=== PATIENT | female | born 1945 | race Caucasian/White ===

== ENCOUNTER 2023-05-10 14:02 | Inpatient (IN) | payer OTHER, MEDICARE ==
[2023-05-10] MEDS ORDERED: ACETAMINOPHEN 1000 MG/100 ML BAG IVPB ONE (14:54)
[2023-05-10] MEDS ORDERED: SODIUM CHLORIDE 0.9% 500 ML INFUS.BAG IV ONE ×2 (14:54→18:31)
[2023-05-10] MEDS ORDERED: ACETAMINOPHEN INJECTION 100 ML IVPB ONE (16:05)
[2023-05-10 16:38] LABS: BASO % 0.3 % (0-2.0); EOS % 0.1 % (0-4.5); HEMATOCRIT 29.3 % (32.4-45.2); HEMOGLOBIN 9.7 GM/dL (10.7-15.3); LYMPH % 9.5 % (8-40); MCH 26.4 pg (25.7-33.7); MCHC 32.9 g/dl (32.0-36.0); MONO % 11.7 % (3.8-10.2); NEUT % 78.4 % (42.8-82.8); PLATELET COUNT 682 10^3/uL (134-434); RBC 3.67 M/mm3 (3.60-5.2); RDW 15.2 % (11.6-15.6); WHITE BLOOD COUNT 17.2 K/mm3 (4.0-10.0)
[2023-05-10 16:43] LABS: INR 1.46 (0.83-1.09); PROTHROMBIN TIME (PATIENT) 16.9 SEC (9.7-13.0)
[2023-05-10 16:46] LABS: ACTIVATED PTT 26.9 SECONDS (25.2-36.5)
[2023-05-10 16:47] LABS: POTASSIUM 3.7 mmol/L (3.5-5.1)
[2023-05-10 16:50] LABS: ALBUMIN 2.2 g/dl (3.4-5.0); CALCIUM 9.4 mg/dL (8.5-10.1); MAGNESIUM 1.8 mg/dL (1.8-2.4)
[2023-05-10 16:54] LABS: BILIRUBIN,TOTAL 0.5 mg/dL (0.2-1); CREATININE 1.3 mg/dL (0.55-1.3); TOT PROT 7.6 g/dl (6.4-8.2)
[2023-05-10 18:18] LABS: EPI CELLS 3 /uL (0-25.1); HYALINE CASTS 0 /uL (0-3.1); URINE APPEARANCE CLOUDY; URINE BACTERIA 314 /uL (0-1359); URINE BILIRUBIN NEGATIVE (NEGATIVE); URINE COLOR DK YELLOW; URINE GLUCOSE (UA) NEGATIVE (NEGATIVE); URINE KETONE NEGATIVE (NEGATIVE); URINE LEUK ESTERASE 3+ (NEGATIVE); URINE NITRITE NEGATIVE (NEGATIVE); URINE PROTEIN TRACE (NEGATIVE); URINE RBC 21 /uL (0-23.9); URINE UROBILINOGEN 0.2 mg/dL (0.2-1.0); URINE WBC 1760 /uL (0-25.8)
[2023-05-10] MEDS ORDERED: CEFTRIAXONE 1 GM/50 ML BAG ONE (19:16)
[2023-05-10] MEDS ORDERED: TAMSULOSIN HCL 0.4 MG CAP PO ONE (19:25)
[2023-05-10] MEDS ORDERED: TAMSULOSIN HCL 0.4 MG CAP ONE (19:47)
[2023-05-10] MEDS ORDERED: morphine CARPU-JECT 2 MG/1 ML DISP.SYRIN IM ONE (20:22)
[2023-05-10] MEDS ORDERED: ONDANSETRON 4 MG/2 ML VIAL IVPUSH ONE (20:22)
[2023-05-10] MEDS ORDERED: ACETAMINOPHEN 325 MG TABLET (FP) PO PRN (20:25)
[2023-05-10] MEDS ORDERED: SODIUM CHLORIDE 1,000 ML IV SCH (20:30)
[2023-05-10 21:32] LABS: YEAST NONE SEEN (NEGATIVE)
[2023-05-11] MEDS ORDERED: ACETAMINOPHEN 1000 MG/100 ML BAG IVPB PRN ×3 (02:00→17:28)
[2023-05-11] MEDS ORDERED: ONDANSETRON 4 MG/2 ML VIAL IVPUSH PRN ×2 (02:30→16:28)
[2023-05-11 10:24] LABS: INR 1.49 (0.83-1.09); PROTHROMBIN TIME (PATIENT) 17.2 SEC (9.7-13.0)
[2023-05-11 10:27] LABS: ACTIVATED PTT 26.5 SECONDS (25.2-36.5)
[2023-05-11 10:35] LABS: BASO % 0.2 % (0-2.0); EOS % 0.1 % (0-4.5); HEMATOCRIT 27.4 % (32.4-45.2); HEMOGLOBIN 9.3 GM/dL (10.7-15.3); MCHC 34.1 g/dl (32.0-36.0); MEAN CELL VOLUME 79.2 fl (80-96); MONO % 8.8 % (3.8-10.2); NEUT % 82.9 % (42.8-82.8); PLATELET COUNT 629 10^3/uL (134-434); RBC 3.46 M/mm3 (3.60-5.2); RDW 15.2 % (11.6-15.6); WHITE BLOOD COUNT 16.3 K/mm3 (4.0-10.0)
[2023-05-11 11:15] LABS: POTASSIUM 3.3 mmol/L (3.5-5.1)
[2023-05-11 11:19] LABS: BLOOD UREA NITROGEN 16.5 mg/dL (7-18); CALCIUM 8.6 mg/dL (8.5-10.1)
[2023-05-11] MEDS ORDERED: POTASSIUM CHLORIDE ORAL LIQUID 20 MEQ/15 ML PO ONE (13:54)
[2023-05-11] MEDS ORDERED: CEFTRIAXONE 1 GM in DEXTROSE 5%-WATER - 50 ML IVPB SCH (14:00)
[2023-05-11] MEDS ORDERED: MIDAZOLAM HCL 2 MG/2 ML SINGLE DOSE VIAL ONE ×2 (15:19→15:24)
[2023-05-11] MEDS ORDERED: KETAMINE HCL 200 MG/20 ML VIAL ONE (15:19)
[2023-05-11] MEDS ORDERED: ceFAZolin SODIUM 1 GM VIAL IVPB ONE (15:30)
[2023-05-11] MEDS ORDERED: IOHEXOL 300 MG/ML INFUS..BTL IV ONE (15:36)
[2023-05-11] MEDS ORDERED: LACTATED RINGERS SOLUTION 1,000 ML IV SCH (16:15)
[2023-05-11] MEDS ORDERED: ACETAMINOPHEN INJECTION 100 ML IVPB ONE (16:20)
[2023-05-11] MEDS ORDERED: SODIUM CHLORIDE 1,000 ML IV SCH (16:28)
[2023-05-11] MEDS ORDERED: ACETAMINOPHEN 1000 MG/100 ML BAG IVPB ONE (17:28)
[2023-05-12] MEDS: CEFTRIAXONE 1 GM in DEXTROSE 5%-WATER - 50 ML IVPB SCH (09:55)
[2023-05-12 11:12] LABS: BASO % 0.2 % (0-2.0); EOS % 0.3 % (0-4.5); HEMATOCRIT 27.4 % (32.4-45.2); HEMOGLOBIN 9.5 GM/dL (10.7-15.3); LYMPH % 6.5 % (8-40); MCH 26.9 pg (25.7-33.7); MCHC 34.7 g/dl (32.0-36.0); MEAN CELL VOLUME 77.7 fl (80-96); MEAN PLT VOLUME 5.9 fl (7.5-11.1); PLATELET COUNT 686 10^3/uL (134-434); RBC 3.52 M/mm3 (3.60-5.2); RDW 15.7 % (11.6-15.6); WHITE BLOOD COUNT 18.7 K/mm3 (4.0-10.0)
[2023-05-12 11:37] LABS: POTASSIUM 3.4 mmol/L (3.5-5.1)
[2023-05-12 11:46] LABS: CALCIUM 8.3 mg/dL (8.5-10.1); CREATININE 1.2 mg/dL (0.55-1.3)
[2023-05-12 11:47] LABS: BLOOD UREA NITROGEN 14.3 mg/dL (7-18)
[2023-05-12 11:49] LABS: BILIRUBIN,TOTAL 0.3 mg/dL (0.2-1); TOT PROT 6.6 g/dl (6.4-8.2)
[2023-05-12 11:56] LABS: ALBUMIN 1.7 g/dl (3.4-5.0)
[2023-05-12 13:48] VITALS: BMI 24.6
[2023-05-12] MEDS: ACETAMINOPHEN 325 MG TABLET (FP) PO PRN (14:33)
[2023-05-12] MEDS: HEPARIN NA (PORCINE) 5,000 UNITS/ML 1ML VIAL SQ SCH ×2 (21:23→21:24)
[2023-05-13] MEDS: CEFTRIAXONE 1 GM in DEXTROSE 5%-WATER - 50 ML IVPB SCH (10:32)
[2023-05-13] MEDS: HEPARIN NA (PORCINE) 5,000 UNITS/ML 1ML VIAL SQ SCH ×2 (10:32→22:15)
[2023-05-14] MEDS: CEFTRIAXONE 1 GM in DEXTROSE 5%-WATER - 50 ML IVPB SCH (09:36)
[2023-05-14] MEDS: HEPARIN NA (PORCINE) 5,000 UNITS/ML 1ML VIAL SQ SCH ×2 (09:37→21:16)
[2023-05-14 09:43] LABS: HEMATOCRIT 28.9 % (32.4-45.2); HEMOGLOBIN 9.7 GM/dL (10.7-15.3); MCH 26.7 pg (25.7-33.7); MCHC 33.5 g/dl (32.0-36.0); MEAN CELL VOLUME 79.6 fl (80-96); MEAN PLT VOLUME 5.9 fl (7.5-11.1); PLATELET COUNT 776 10^3/uL (134-434); RBC 3.63 M/mm3 (3.60-5.2); RDW 15.5 % (11.6-15.6)
[2023-05-14 09:52] LABS: POTASSIUM 3.3 mmol/L (3.5-5.1)
[2023-05-14 10:10] LABS: CALCIUM 8.3 mg/dL (8.5-10.1)
[2023-05-14 10:11] LABS: ALBUMIN 1.8 g/dl (3.4-5.0); BLOOD UREA NITROGEN 11.6 mg/dL (7-18)
[2023-05-14 10:14] LABS: CREATININE 0.9 mg/dL (0.55-1.3)
[2023-05-14 10:16] LABS: TOT PROT 7.1 g/dl (6.4-8.2)
[2023-05-14 10:18] LABS: BILIRUBIN,TOTAL 0.3 mg/dL (0.2-1)
[2023-05-14 10:21] LABS: ANISOCYTOSIS 2+; MACROCYTOSIS 0
[2023-05-14] MEDS ORDERED: POTASSIUM CHLORIDE ORAL LIQUID 20 MEQ/15 ML PO ONE (11:30)
[2023-05-14] MEDS: ACETAMINOPHEN 325 MG TABLET (FP) PO PRN (13:23)
[2023-05-15 08:37] LABS: HEMATOCRIT 25.5 % (32.4-45.2); HEMOGLOBIN 8.4 GM/dL (10.7-15.3); MCH 26.3 pg (25.7-33.7); MCHC 33.1 g/dl (32.0-36.0); MEAN CELL VOLUME 79.5 fl (80-96); PLATELET COUNT 687 10^3/uL (134-434); RBC 3.21 M/mm3 (3.60-5.2); RDW 15.7 % (11.6-15.6); WHITE BLOOD COUNT 17.5 K/mm3 (4.0-10.0)
[2023-05-15 08:47] LABS: MEAN PLT VOLUME 5.7 fl (7.5-11.1)
[2023-05-15 08:56] LABS: POTASSIUM 3.9 mmol/L (3.5-5.1)
[2023-05-15 08:58] LABS: CALCIUM 7.9 mg/dL (8.5-10.1)
[2023-05-15 08:59] LABS: ALBUMIN 1.6 g/dl (3.4-5.0); BLOOD UREA NITROGEN 12.1 mg/dL (7-18)
[2023-05-15 09:03] LABS: BILIRUBIN,TOTAL 0.4 mg/dL (0.2-1); TOT PROT 6.6 g/dl (6.4-8.2)
[2023-05-15 09:33] LABS: ANISOCYTOSIS 0; HELMET CELLS 0; HOWELL-JOLLY BODIES 0; MACROCYTOSIS 0; OVALOCYTE 0; ROULEAU 0; SICKELED CELLS 0; TARGET CELLS 0; TEAR DROP CELLS 0; TOXIC GRANULATION 0
[2023-05-15] MEDS: CEFTRIAXONE 1 GM in DEXTROSE 5%-WATER - 50 ML IVPB SCH (09:35)
[2023-05-15] MEDS: HEPARIN NA (PORCINE) 5,000 UNITS/ML 1ML VIAL SQ SCH ×2 (09:36→21:04)
[2023-05-15] MEDS: ACETAMINOPHEN 325 MG TABLET (FP) PO PRN (09:36)
[2023-05-16] MEDS: HEPARIN NA (PORCINE) 5,000 UNITS/ML 1ML VIAL SQ SCH ×2 (09:14→21:00)
[2023-05-16] MEDS: CEFTRIAXONE 1 GM in DEXTROSE 5%-WATER - 50 ML IVPB SCH (09:15)
[2023-05-16 10:34] LABS: HEMATOCRIT 25.8 % (32.4-45.2); HEMOGLOBIN 8.9 GM/dL (10.7-15.3); MCH 27.3 pg (25.7-33.7); MCHC 34.5 g/dl (32.0-36.0); PLATELET COUNT 636 10^3/uL (134-434); RBC 3.26 M/mm3 (3.60-5.2); RDW 15.8 % (11.6-15.6); WHITE BLOOD COUNT 15.1 K/mm3 (4.0-10.0)
[2023-05-16 10:36] LABS: MEAN PLT VOLUME 5.7 fl (7.5-11.1)
[2023-05-16 11:12] LABS: ANISOCYTOSIS 0; MACROCYTOSIS 0
[2023-05-17] MEDS: HEPARIN NA (PORCINE) 5,000 UNITS/ML 1ML VIAL SQ SCH ×2 (09:36→21:32)
[2023-05-17] MEDS: CEFTRIAXONE 1 GM in DEXTROSE 5%-WATER - 50 ML IVPB SCH (09:37)
[2023-05-17 10:29] LABS: HEMATOCRIT 27.1 % (32.4-45.2); HEMOGLOBIN 8.9 GM/dL (10.7-15.3); MCH 26.3 pg (25.7-33.7); MCHC 32.7 g/dl (32.0-36.0); MEAN CELL VOLUME 80.5 fl (80-96); PLATELET COUNT 764 10^3/uL (134-434); RBC 3.37 M/mm3 (3.60-5.2); RDW 15.9 % (11.6-15.6); WHITE BLOOD COUNT 17.7 K/mm3 (4.0-10.0)
[2023-05-17 10:31] LABS: MEAN PLT VOLUME 5.8 fl (7.5-11.1)
[2023-05-17 10:50] LABS: POTASSIUM 4.1 mmol/L (3.5-5.1)
[2023-05-17 10:53] LABS: CALCIUM 8.6 mg/dL (8.5-10.1)
[2023-05-17 10:54] LABS: ALBUMIN 1.8 g/dl (3.4-5.0); BLOOD UREA NITROGEN 12.2 mg/dL (7-18)
[2023-05-17 10:57] LABS: CREATININE 1.1 mg/dL (0.55-1.3)
[2023-05-17 10:59] LABS: BILIRUBIN,TOTAL 0.5 mg/dL (0.2-1); TOT PROT 7.5 g/dl (6.4-8.2)
[2023-05-17 11:15] LABS: ANISOCYTOSIS 2+; MACROCYTOSIS 0
[2023-05-18] MEDS: CEFTRIAXONE 1 GM in DEXTROSE 5%-WATER - 50 ML IVPB SCH (09:53)
[2023-05-18] MEDS: HEPARIN NA (PORCINE) 5,000 UNITS/ML 1ML VIAL SQ SCH ×2 (09:53→21:42)
[2023-05-18 13:44] LABS: HEMATOCRIT 27.6 % (32.4-45.2); HEMOGLOBIN 9.1 GM/dL (10.7-15.3); MCH 26.5 pg (25.7-33.7); MCHC 32.9 g/dl (32.0-36.0); MEAN CELL VOLUME 80.6 fl (80-96); PLATELET COUNT 766 10^3/uL (134-434); RBC 3.42 M/mm3 (3.60-5.2); RDW 15.6 % (11.6-15.6); WHITE BLOOD COUNT 17.4 K/mm3 (4.0-10.0)
[2023-05-18 13:45] LABS: MEAN PLT VOLUME 5.8 fl (7.5-11.1)
[2023-05-18 14:29] LABS: ANISOCYTOSIS 0; HELMET CELLS 0; HOWELL-JOLLY BODIES 0; MACROCYTOSIS 0; OVALOCYTE 0; ROULEAU 0; SICKELED CELLS 0; TARGET CELLS 0; TEAR DROP CELLS 0; TOXIC GRANULATION 0
[2023-05-18] MEDS: MIRTAZAPINE 15 MG TABLET (FP) PO SCH (21:42)
[2023-05-19] MEDS: PANTOPRAZOLE 40 MG TABLET PO SCH (10:23)
[2023-05-19] MEDS: FOLIC ACID 1 MG TABLET (FP) PO SCH (10:23)
[2023-05-19] MEDS: VITAMIN B COMP W-C 1 EA TABLET (NEPHRO-VITE) PO SCH (10:23)
[2023-05-19] MEDS: HEPARIN NA (PORCINE) 5,000 UNITS/ML 1ML VIAL SQ SCH (10:24)
[2023-05-19 11:19] LABS: HEMATOCRIT 24.8 % (32.4-45.2); HEMOGLOBIN 8.6 GM/dL (10.7-15.3); MCH 27.5 pg (25.7-33.7); MCHC 34.9 g/dl (32.0-36.0); MEAN CELL VOLUME 78.9 fl (80-96); MEAN PLT VOLUME 5.9 fl (7.5-11.1); PLATELET COUNT 630 10^3/uL (134-434); RBC 3.14 M/mm3 (3.60-5.2); RDW 15.7 % (11.6-15.6)
[2023-05-19 11:59] LABS: POTASSIUM 4.3 mmol/L (3.5-5.1)
[2023-05-19 12:28] LABS: CALCIUM 8.5 mg/dL (8.5-10.1)
[2023-05-19 12:30] LABS: ALBUMIN 1.6 g/dl (3.4-5.0); BLOOD UREA NITROGEN 13.6 mg/dL (7-18)
[2023-05-19 12:34] LABS: CREATININE 1.1 mg/dL (0.55-1.3)
[2023-05-19 12:35] LABS: ANISOCYTOSIS 0; HELMET CELLS 0; HOWELL-JOLLY BODIES 0; MACROCYTOSIS 0; OVALOCYTE 0; ROULEAU 0; SICKELED CELLS 0; TARGET CELLS 0; TEAR DROP CELLS 0; TOXIC GRANULATION 0
[2023-05-19 12:36] LABS: BILIRUBIN,TOTAL 0.4 mg/dL (0.2-1)
[2023-05-19] MEDS ORDERED: CEFTRIAXONE 1 GM in DEXTROSE 5%-WATER - 50 ML IVPB SCH (14:15)
[2023-05-19] MEDS: CEFTRIAXONE 2 GM in DEXTROSE 5%-WATER 100 ML IVPB SCH (14:52)
[2023-05-19] MEDS: MIRTAZAPINE 15 MG TABLET (FP) PO SCH (21:53)
[2023-05-20] MEDS: FOLIC ACID 1 MG TABLET (FP) PO SCH (10:01)
[2023-05-20] MEDS: PANTOPRAZOLE 40 MG TABLET PO SCH (10:01)
[2023-05-20] MEDS: CEFTRIAXONE 2 GM in DEXTROSE 5%-WATER 100 ML IVPB SCH (10:02)
[2023-05-20] MEDS: VITAMIN B COMP W-C 1 EA TABLET (NEPHRO-VITE) PO SCH (10:02)
[2023-05-20 10:19] LABS: HEMATOCRIT 25.9 % (32.4-45.2); HEMOGLOBIN 8.4 GM/dL (10.7-15.3); MCH 26.3 pg (25.7-33.7); MCHC 32.4 g/dl (32.0-36.0); MEAN CELL VOLUME 80.9 fl (80-96); MEAN PLT VOLUME 5.9 fl (7.5-11.1); PLATELET COUNT 702 10^3/uL (134-434); RBC 3.19 M/mm3 (3.60-5.2); RDW 15.9 % (11.6-15.6); WHITE BLOOD COUNT 15.7 K/mm3 (4.0-10.0)
[2023-05-20 10:38] LABS: POTASSIUM 4.3 mmol/L (3.5-5.1)
[2023-05-20 10:45] LABS: BLOOD UREA NITROGEN 15.8 mg/dL (7-18)
[2023-05-20 10:46] LABS: ALBUMIN 1.7 g/dl (3.4-5.0); CALCIUM 8.8 mg/dL (8.5-10.1)
[2023-05-20 10:49] LABS: CREATININE 1.1 mg/dL (0.55-1.3)
[2023-05-20 10:51] LABS: BILIRUBIN,TOTAL 0.4 mg/dL (0.2-1); TOT PROT 7.5 g/dl (6.4-8.2)
[2023-05-20] MEDS: MIRTAZAPINE 15 MG TABLET (FP) PO SCH (22:33)
[2023-05-20] MEDS: ACETAMINOPHEN 325 MG TABLET (FP) PO PRN (22:34)
[2023-05-21] MEDS: PANTOPRAZOLE 40 MG TABLET PO SCH (10:22)
[2023-05-21] MEDS: CEFTRIAXONE 2 GM in DEXTROSE 5%-WATER 100 ML IVPB SCH (10:22)
[2023-05-21] MEDS: VITAMIN B COMP W-C 1 EA TABLET (NEPHRO-VITE) PO SCH (10:22)
[2023-05-21] MEDS: FOLIC ACID 1 MG TABLET (FP) PO SCH (10:22)
[2023-05-21] MEDS: MIRTAZAPINE 15 MG TABLET (FP) PO SCH (22:57)
[2023-05-22] MEDS: CEFTRIAXONE 2 GM in DEXTROSE 5%-WATER 100 ML IVPB SCH (09:38)
[2023-05-22] MEDS: VITAMIN B COMP W-C 1 EA TABLET (NEPHRO-VITE) PO SCH (09:39)
[2023-05-22] MEDS: PANTOPRAZOLE 40 MG TABLET PO SCH (09:39)
[2023-05-22] MEDS: FOLIC ACID 1 MG TABLET (FP) PO SCH (09:39)
[2023-05-22 10:34] LABS: HEMATOCRIT 25.7 % (32.4-45.2); HEMOGLOBIN 8.5 GM/dL (10.7-15.3); MCH 26.6 pg (25.7-33.7); MCHC 33.1 g/dl (32.0-36.0); MEAN CELL VOLUME 80.3 fl (80-96); PLATELET COUNT 752 10^3/uL (134-434); RDW 15.5 % (11.6-15.6)
[2023-05-22 10:50] LABS: POTASSIUM 3.9 mmol/L (3.5-5.1)
[2023-05-22 10:57] LABS: ALBUMIN 1.7 g/dl (3.4-5.0); CALCIUM 8.7 mg/dL (8.5-10.1)
[2023-05-22 10:58] LABS: BLOOD UREA NITROGEN 14.4 mg/dL (7-18)
[2023-05-22 11:00] LABS: BILIRUBIN,TOTAL 0.4 mg/dL (0.2-1); TOT PROT 7.6 g/dl (6.4-8.2)
[2023-05-22 11:01] LABS: CREATININE 1.2 mg/dL (0.55-1.3)
[2023-05-22] MEDS: MIRTAZAPINE 15 MG TABLET (FP) PO SCH (21:33)
[2023-05-23] MEDS: CEFTRIAXONE 2 GM in DEXTROSE 5%-WATER 100 ML IVPB SCH (09:44)
[2023-05-23] MEDS: VITAMIN B COMP W-C 1 EA TABLET (NEPHRO-VITE) PO SCH (09:45)
[2023-05-23] MEDS: PANTOPRAZOLE 40 MG TABLET PO SCH (09:45)
[2023-05-23] MEDS: FOLIC ACID 1 MG TABLET (FP) PO SCH (09:45)
[2023-05-23] MEDS: MIRTAZAPINE 15 MG TABLET (FP) PO SCH (22:01)
[2023-05-24] MEDS: CEFTRIAXONE 2 GM in DEXTROSE 5%-WATER 100 ML IVPB SCH (09:16)
[2023-05-24] MEDS: PANTOPRAZOLE 40 MG TABLET PO SCH (09:16)
[2023-05-24] MEDS: VITAMIN B COMP W-C 1 EA TABLET (NEPHRO-VITE) PO SCH (09:16)
[2023-05-24] MEDS: FOLIC ACID 1 MG TABLET (FP) PO SCH (09:16)
[2023-05-24 10:19] LABS: HEMATOCRIT 26.3 % (32.4-45.2); HEMOGLOBIN 8.5 GM/dL (10.7-15.3); MCHC 32.1 g/dl (32.0-36.0); MEAN CELL VOLUME 81.1 fl (80-96); MEAN PLT VOLUME 5.9 fl (7.5-11.1); PLATELET COUNT 783 10^3/uL (134-434); RBC 3.25 M/mm3 (3.60-5.2); RDW 15.8 % (11.6-15.6); WHITE BLOOD COUNT 13.4 K/mm3 (4.0-10.0)
[2023-05-24 10:36] LABS: POTASSIUM 4.1 mmol/L (3.5-5.1)
[2023-05-24 10:38] LABS: ALBUMIN 1.8 g/dl (3.4-5.0); CALCIUM 8.8 mg/dL (8.5-10.1)
[2023-05-24 10:39] LABS: BLOOD UREA NITROGEN 14.6 mg/dL (7-18)
[2023-05-24 10:43] LABS: BILIRUBIN,TOTAL 0.3 mg/dL (0.2-1); TOT PROT 7.6 g/dl (6.4-8.2)
[2023-05-24] MEDS ORDERED: NYSTATIN 100,000 UNIT/GM TOPICAL CREAM 15 GM TUBE TP SCH (11:15)
[2023-05-24 12:58] LABS: ANISOCYTOSIS 0; MACROCYTOSIS 0
[2023-05-24] MEDS ORDERED: LIDOCAINE HCL/PF 2% SDV 5ML VIAL ONE (14:52)
[2023-05-24] MEDS ORDERED: PROPOFOL 20 ML ONE (14:53)
[2023-05-24] MEDS ORDERED: FENTANYL CITRATE/PF 50 MCG/ML VIAL ONE (14:53)
[2023-05-24] MEDS ORDERED: DEXAMETHASONE SOD PHOSPHATE 4 MG/1 ML VIAL ONE (15:20)
[2023-05-24] MEDS ORDERED: ONDANSETRON 4 MG/2 ML VIAL ONE (15:20)
[2023-05-24] MEDS ORDERED: IOHEXOL 300 MG/ML INFUS..BTL IJ ONE (15:40)
[2023-05-24] MEDS ORDERED: ACETAMINOPHEN 1000 MG/100 ML BAG IVPB PRN (16:10)
[2023-05-24] MEDS ORDERED: ONDANSETRON 4 MG/2 ML VIAL IVPUSH PRN (16:10)
[2023-05-24] MEDS ORDERED: ACETAMINOPHEN INJECTION 100 ML IVPB ONE (16:22)
[2023-05-24] MEDS: LACTATED RINGERS SOLUTION 1,000 ML IV SCH ×2 (17:28→18:06)
[2023-05-24] MEDS: MIRTAZAPINE 15 MG TABLET (FP) PO SCH (21:58)
[2023-05-24] MEDS: NYSTATIN 100,000 UNIT/GM TOPICAL CREAM 15 GM TUBE TP SCH (21:58)
[2023-05-25 08:46] LABS: HEMATOCRIT 25.8 % (32.4-45.2); HEMOGLOBIN 8.6 GM/dL (10.7-15.3); MCH 26.6 pg (25.7-33.7); MCHC 33.2 g/dl (32.0-36.0); MEAN CELL VOLUME 80.1 fl (80-96); MEAN PLT VOLUME 5.9 fl (7.5-11.1); PLATELET COUNT 839 10^3/uL (134-434); RBC 3.22 M/mm3 (3.60-5.2); RDW 15.6 % (11.6-15.6); WHITE BLOOD COUNT 13.4 K/mm3 (4.0-10.0)
[2023-05-25] MEDS: PANTOPRAZOLE 40 MG TABLET PO SCH (10:11)
[2023-05-25] MEDS: VITAMIN B COMP W-C 1 EA TABLET (NEPHRO-VITE) PO SCH (10:11)
[2023-05-25] MEDS: CEFTRIAXONE 2 GM in DEXTROSE 5%-WATER 100 ML IVPB SCH (10:11)
[2023-05-25] MEDS: NYSTATIN 100,000 UNIT/GM TOPICAL CREAM 15 GM TUBE TP SCH ×2 (10:12→22:55)
[2023-05-25] MEDS: FOLIC ACID 1 MG TABLET (FP) PO SCH (10:12)
[2023-05-25] MEDS: LACTATED RINGERS SOLUTION 1,000 ML IV SCH (16:30)
[2023-05-25] MEDS: MIRTAZAPINE 15 MG TABLET (FP) PO SCH (22:54)
[2023-05-26] MEDS: PANTOPRAZOLE 40 MG TABLET PO SCH (09:55)
[2023-05-26] MEDS: FOLIC ACID 1 MG TABLET (FP) PO SCH (09:55)
[2023-05-26] MEDS: VITAMIN B COMP W-C 1 EA TABLET (NEPHRO-VITE) PO SCH (09:55)
[2023-05-26] MEDS: CEFTRIAXONE 2 GM in DEXTROSE 5%-WATER 100 ML IVPB SCH (09:56)
[2023-05-26] MEDS: NYSTATIN 100,000 UNIT/GM TOPICAL CREAM 15 GM TUBE TP SCH ×2 (10:02→22:20)
[2023-05-26 11:33] LABS: BASO % 0.8 % (0-2.0); EOS % 1.1 % (0-4.5); HEMATOCRIT 25.8 % (32.4-45.2); HEMOGLOBIN 8.8 GM/dL (10.7-15.3); LYMPH % 12.6 % (8-40); MCH 27.2 pg (25.7-33.7); MCHC 34.3 g/dl (32.0-36.0); MEAN CELL VOLUME 79.2 fl (80-96); MONO % 9.8 % (3.8-10.2); NEUT % 75.7 % (42.8-82.8); PLATELET COUNT 739 10^3/uL (134-434); RBC 3.25 M/mm3 (3.60-5.2); RDW 15.8 % (11.6-15.6)
[2023-05-26] MEDS: LACTATED RINGERS SOLUTION 1,000 ML IV SCH (18:07)
[2023-05-26] MEDS: AMINO ACIDS/PROTEIN HYDROLYS 30 ML LIQUID.PKT PO SCH (18:07)
[2023-05-26] MEDS ORDERED: VANCOMYCIN/WATER FOR INJ (PEG) 1,000 MG/200 ML BAG IVPB ONE (21:30)
[2023-05-26] MEDS: MIRTAZAPINE 15 MG TABLET (FP) PO SCH (22:12)
[2023-05-27 01:03] LABS: BASO % 0.7 % (0-2.0); EOS % 0.9 % (0-4.5); HEMATOCRIT 22.9 % (32.4-45.2); HEMOGLOBIN 7.5 GM/dL (10.7-15.3); LYMPH % 11.9 % (8-40); MCH 26.3 pg (25.7-33.7); MCHC 32.8 g/dl (32.0-36.0); MEAN CELL VOLUME 80.2 fl (80-96); MEAN PLT VOLUME 6.1 fl (7.5-11.1); MONO % 10.7 % (3.8-10.2); NEUT % 75.8 % (42.8-82.8); PLATELET COUNT 606 10^3/uL (134-434); RBC 2.85 M/mm3 (3.60-5.2); RDW 15.7 % (11.6-15.6); WHITE BLOOD COUNT 14.3 K/mm3 (4.0-10.0)
[2023-05-27 01:04] LABS: EPI CELLS 18 /uL (0-25.1); HYALINE CASTS 11 /uL (0-3.1); PH,URINE 6.5 (5.0-8.0); URINE APPEARANCE TURBID; URINE BACTERIA 1094 /uL (0-1359); URINE BILIRUBIN NEGATIVE (NEGATIVE); URINE COLOR YELLOW; URINE GLUCOSE (UA) NEGATIVE (NEGATIVE); URINE KETONE NEGATIVE (NEGATIVE); URINE LEUK ESTERASE 3+ (NEGATIVE); URINE NITRITE NEGATIVE (NEGATIVE); URINE PROTEIN 3+ (NEGATIVE); URINE UROBILINOGEN 0.2 mg/dL (0.2-1.0); URINE WBC 12169 /uL (0-25.8)
[2023-05-27 01:33] LABS: POTASSIUM 3.9 mmol/L (3.5-5.1)
[2023-05-27 01:35] LABS: CALCIUM 7.5 mg/dL (8.5-10.1)
[2023-05-27 01:36] LABS: ALBUMIN 1.6 g/dl (3.4-5.0); BLOOD UREA NITROGEN 16.6 mg/dL (7-18); MAGNESIUM 1.6 mg/dL (1.8-2.4)
[2023-05-27 01:39] LABS: CREATININE 1.1 mg/dL (0.55-1.3); PHOSPHOROUS 2.5 mg/dL (2.5-4.9)
[2023-05-27 01:40] LABS: BILIRUBIN,TOTAL 0.2 mg/dL (0.2-1); TOT PROT 6.5 g/dl (6.4-8.2)
[2023-05-27] MEDS: ACETAMINOPHEN 325 MG TABLET (FP) PO PRN ×3 (03:01→20:25)
[2023-05-27 07:23] LABS: URINE RBC 200.6 /uL (0-23.9)
[2023-05-27 07:24] LABS: URINE CRYSTALS NONE SEEN /hpf
[2023-05-27] MEDS: AMINO ACIDS/PROTEIN HYDROLYS 30 ML LIQUID.PKT PO SCH ×2 (10:54→17:13)
[2023-05-27] MEDS: VITAMIN B COMP W-C 1 EA TABLET (NEPHRO-VITE) PO SCH (10:55)
[2023-05-27] MEDS: FOLIC ACID 1 MG TABLET (FP) PO SCH (10:55)
[2023-05-27] MEDS: PANTOPRAZOLE 40 MG TABLET PO SCH (10:55)
[2023-05-27] MEDS: NYSTATIN 100,000 UNIT/GM TOPICAL CREAM 15 GM TUBE TP SCH ×2 (10:56→21:49)
[2023-05-27] MEDS: CEFTRIAXONE 2 GM in DEXTROSE 5%-WATER 100 ML IVPB SCH (11:40)
[2023-05-27] MEDS ORDERED: FENTANYL CITRATE/PF 50 MCG/ML VIAL ONE (12:46)
[2023-05-27] MEDS ORDERED: FENTANYL CITRATE/PF 50 MCG/ML VIAL IVPUSH ONE (12:48)
[2023-05-27] MEDS ORDERED: PIPERACILLIN/TAZOB 4.5 GM 4.5 GM in DEXTROSE 5%-WATER 100 ML IVPB SCH (15:22)
[2023-05-27] MEDS: LACTATED RINGERS SOLUTION 1,000 ML IV SCH (16:16)
[2023-05-27] MEDS: PIPERACILLIN/TAZOB 3.375 GM 3.375 GM in DEXTROSE 5%-WATER - 50 ML IVPB SCH ×2 (16:16→21:50)
[2023-05-27] MEDS: MIRTAZAPINE 15 MG TABLET (FP) PO SCH (21:49)
[2023-05-28] MEDS: ACETAMINOPHEN 325 MG TABLET (FP) PO PRN (05:24)
[2023-05-28] MEDS: PIPERACILLIN/TAZOB 3.375 GM 3.375 GM in DEXTROSE 5%-WATER - 50 ML IVPB SCH ×3 (06:26→22:17)
[2023-05-28 09:14] LABS: BASO % 0.7 % (0-2.0); EOS % 1.7 % (0-4.5); HEMOGLOBIN 8.1 GM/dL (10.7-15.3); LYMPH % 6.6 % (8-40); MCH 26.1 pg (25.7-33.7); MCHC 32.6 g/dl (32.0-36.0); MONO % 7.1 % (3.8-10.2); NEUT % 83.9 % (42.8-82.8); PLATELET COUNT 607 10^3/uL (134-434); RBC 3.13 M/mm3 (3.60-5.2); RDW 15.9 % (11.6-15.6); WHITE BLOOD COUNT 12.7 K/mm3 (4.0-10.0)
[2023-05-28 09:29] LABS: POTASSIUM 3.7 mmol/L (3.5-5.1)
[2023-05-28 09:36] LABS: CALCIUM 8.1 mg/dL (8.5-10.1)
[2023-05-28 09:37] LABS: ALBUMIN 1.7 g/dl (3.4-5.0); BLOOD UREA NITROGEN 14.7 mg/dL (7-18)
[2023-05-28 09:40] LABS: CREATININE 1.2 mg/dL (0.55-1.3)
[2023-05-28 09:41] LABS: BILIRUBIN,TOTAL 0.3 mg/dL (0.2-1)
[2023-05-28 09:43] LABS: IRON SERUM 8 ug/dL (50-175); TOTAL IRON BINDING CAPACITY 132 ug/dL (250-450)
[2023-05-28] MEDS: AMINO ACIDS/PROTEIN HYDROLYS 30 ML LIQUID.PKT PO SCH ×2 (09:50→17:28)
[2023-05-28] MEDS: VITAMIN B COMP W-C 1 EA TABLET (NEPHRO-VITE) PO SCH (09:50)
[2023-05-28] MEDS: FOLIC ACID 1 MG TABLET (FP) PO SCH (09:50)
[2023-05-28] MEDS: PANTOPRAZOLE 40 MG TABLET PO SCH (09:50)
[2023-05-28] MEDS: NYSTATIN 100,000 UNIT/GM TOPICAL CREAM 15 GM TUBE TP SCH ×2 (09:51→22:19)
[2023-05-28] MEDS ORDERED: IRON SUCROSE INJECTION 200 MG in SODIUM CHLORIDE 90 ML IVPB ONE (13:30)
[2023-05-28] MEDS: LACTATED RINGERS SOLUTION 1,000 ML IV SCH (17:31)
[2023-05-28] MEDS: MIRTAZAPINE 15 MG TABLET (FP) PO SCH (22:16)
[2023-05-29] MEDS: PIPERACILLIN/TAZOB 3.375 GM 3.375 GM in DEXTROSE 5%-WATER - 50 ML IVPB SCH ×4 (00:33→22:18)
[2023-05-29] MEDS: ACETAMINOPHEN 325 MG TABLET (FP) PO PRN (01:27)
[2023-05-29] MEDS: PANTOPRAZOLE 40 MG TABLET PO SCH (09:19)
[2023-05-29] MEDS: AMINO ACIDS/PROTEIN HYDROLYS 30 ML LIQUID.PKT PO SCH ×2 (09:19→17:50)
[2023-05-29] MEDS: VITAMIN B COMP W-C 1 EA TABLET (NEPHRO-VITE) PO SCH (09:19)
[2023-05-29] MEDS: NYSTATIN 100,000 UNIT/GM TOPICAL CREAM 15 GM TUBE TP SCH ×2 (09:19→22:20)
[2023-05-29] MEDS: ENOXAPARIN NA (PORCINE) 40 MG/0.4 ML DISP.SYRIN SQ SCH (09:19)
[2023-05-29] MEDS: FOLIC ACID 1 MG TABLET (FP) PO SCH (09:19)
[2023-05-29] MEDS ORDERED: BENZOCAINE/MENTHOL 1 EACH LOZENGE MM PRN (09:45)
[2023-05-29] MEDS: LACTOBACILLUS ACIDOPHILUS 1 TABLET PO SCH (13:41)
[2023-05-29] MEDS: LACTATED RINGERS SOLUTION 1,000 ML IV SCH (17:50)
[2023-05-29] MEDS: MIRTAZAPINE 15 MG TABLET (FP) PO SCH (22:18)
[2023-05-29] MEDS: SODIUM CHLORIDE 1,000 ML IV SCH (22:18)
[2023-05-30] MEDS: PIPERACILLIN/TAZOB 3.375 GM 3.375 GM in DEXTROSE 5%-WATER - 50 ML IVPB SCH ×2 (05:40→13:41)
[2023-05-30] MEDS: AMINO ACIDS/PROTEIN HYDROLYS 30 ML LIQUID.PKT PO SCH ×2 (08:42→17:42)
[2023-05-30] MEDS: NYSTATIN 100,000 UNIT/GM TOPICAL CREAM 15 GM TUBE TP SCH ×2 (10:13→22:46)
[2023-05-30] MEDS: VITAMIN B COMP W-C 1 EA TABLET (NEPHRO-VITE) PO SCH (10:54)
[2023-05-30] MEDS: ENOXAPARIN NA (PORCINE) 40 MG/0.4 ML DISP.SYRIN SQ SCH (10:54)
[2023-05-30] MEDS: FOLIC ACID 1 MG TABLET (FP) PO SCH (10:54)
[2023-05-30] MEDS: PANTOPRAZOLE 40 MG TABLET PO SCH (10:54)
[2023-05-30] MEDS: LACTOBACILLUS ACIDOPHILUS 1 TABLET PO SCH (10:55)
[2023-05-30 12:21] LABS: HEMOGLOBIN 8.1 GM/dL (10.7-15.3); MCH 26.1 pg (25.7-33.7); MCHC 32.5 g/dl (32.0-36.0); MEAN CELL VOLUME 80.5 fl (80-96); PLATELET COUNT 687 10^3/uL (134-434); RDW 15.8 % (11.6-15.6); WHITE BLOOD COUNT 11.2 K/mm3 (4.0-10.0)
[2023-05-30 12:44] LABS: POTASSIUM 3.8 mmol/L (3.5-5.1)
[2023-05-30 12:48] LABS: BLOOD UREA NITROGEN 15.3 mg/dL (7-18); CALCIUM 8.2 mg/dL (8.5-10.1)
[2023-05-30 12:49] LABS: ALBUMIN 1.7 g/dl (3.4-5.0)
[2023-05-30 12:52] LABS: CREATININE 1.1 mg/dL (0.55-1.3)
[2023-05-30 12:53] LABS: BILIRUBIN,TOTAL 0.3 mg/dL (0.2-1); TOT PROT 6.8 g/dl (6.4-8.2)
[2023-05-30 13:01] LABS: ANISOCYTOSIS 2+; MACROCYTOSIS 0; TARGET CELLS 1+
[2023-05-30] MEDS: CEFTRIAXONE 2 GM in DEXTROSE 5%-WATER 100 ML IVPB SCH (17:42)
[2023-05-30] MEDS ORDERED: PIPERACILLIN/TAZOB 3.375 GM 3.375 GM in DEXTROSE 5%-WATER - 50 ML IVPB SCH (22:00)
[2023-05-30] MEDS: MIRTAZAPINE 15 MG TABLET (FP) PO SCH (22:44)
[2023-05-30] MEDS: ACETAMINOPHEN 325 MG TABLET (FP) PO PRN (23:58)
[2023-05-31] MEDS: SODIUM CHLORIDE 1,000 ML IV SCH ×2 (01:45→21:35)
[2023-05-31] MEDS ORDERED: ACETAMINOPHEN 325 MG SUPP.RECT RC ONE (02:00)
[2023-05-31] MEDS ORDERED: ACETAMINOPHEN 1000 MG/100 ML BAG IVPB ONE (04:57)
[2023-05-31] MEDS: LACTATED RINGERS SOLUTION 1,000 ML IV SCH ×2 (06:05→19:26)
[2023-05-31] MEDS: AMINO ACIDS/PROTEIN HYDROLYS 30 ML LIQUID.PKT PO SCH ×2 (09:14→19:24)
[2023-05-31 09:38] LABS: HEMATOCRIT 25.6 % (32.4-45.2); HEMOGLOBIN 8.5 GM/dL (10.7-15.3); MCH 26.2 pg (25.7-33.7); MCHC 33.4 g/dl (32.0-36.0); MEAN CELL VOLUME 78.5 fl (80-96); MEAN PLT VOLUME 5.9 fl (7.5-11.1); PLATELET COUNT 622 10^3/uL (134-434); RBC 3.26 M/mm3 (3.60-5.2); WHITE BLOOD COUNT 22.6 K/mm3 (4.0-10.0)
[2023-05-31 09:48] LABS: POTASSIUM 3.6 mmol/L (3.5-5.1)
[2023-05-31 09:54] LABS: CALCIUM 8.2 mg/dL (8.5-10.1)
[2023-05-31 09:55] LABS: ALBUMIN 1.7 g/dl (3.4-5.0)
[2023-05-31 09:57] LABS: CREATININE 1.2 mg/dL (0.55-1.3)
[2023-05-31 09:59] LABS: BILIRUBIN,TOTAL 0.2 mg/dL (0.2-1); TOT PROT 6.8 g/dl (6.4-8.2)
[2023-05-31] MEDS: CEFTRIAXONE 2 GM in DEXTROSE 5%-WATER 100 ML IVPB SCH (10:14)
[2023-05-31 10:15] LABS: EPI CELLS 8 /uL (0-25.1); HYALINE CASTS 0 /uL (0-3.1); URINE APPEARANCE TURBID; URINE BACTERIA 276 /uL (0-1359); URINE BILIRUBIN NEGATIVE (NEGATIVE); URINE COLOR YELLOW; URINE GLUCOSE (UA) NEGATIVE (NEGATIVE); URINE KETONE NEGATIVE (NEGATIVE); URINE LEUK ESTERASE 3+ (NEGATIVE); URINE NITRITE NEGATIVE (NEGATIVE); URINE PROTEIN 2+ (NEGATIVE); URINE UROBILINOGEN 0.2 mg/dL (0.2-1.0); URINE WBC 5819 /uL (0-25.8)
[2023-05-31] MEDS: FOLIC ACID 1 MG TABLET (FP) PO SCH (10:15)
[2023-05-31] MEDS: LACTOBACILLUS ACIDOPHILUS 1 TABLET PO SCH (10:15)
[2023-05-31] MEDS: VITAMIN B COMP W-C 1 EA TABLET (NEPHRO-VITE) PO SCH (10:15)
[2023-05-31] MEDS: PANTOPRAZOLE 40 MG TABLET PO SCH ×2 (10:15→21:32)
[2023-05-31] MEDS: ENOXAPARIN NA (PORCINE) 40 MG/0.4 ML DISP.SYRIN SQ SCH (10:15)
[2023-05-31] MEDS: NYSTATIN 100,000 UNIT/GM TOPICAL CREAM 15 GM TUBE TP SCH ×2 (10:24→21:32)
[2023-05-31 10:43] LABS: ANISOCYTOSIS 3+; MACROCYTOSIS 0
[2023-05-31 10:50] LABS: URINE CRYSTALS NONE SEEN /hpf; URINE RBC 753.1 /uL (0-23.9)
[2023-05-31 10:51] LABS: YEAST NONE SEEN (NEGATIVE)
[2023-05-31] MEDS: ACETAMINOPHEN 325 MG TABLET (FP) PO PRN ×2 (13:15→21:31)
[2023-05-31] MEDS ORDERED: guaiFENesin 200 MG/10 ML 10 ML UNIT-DOSE CUPS PO PRN (14:43)
[2023-05-31] MEDS: MEROPENEM 1 GM in DEXTROSE 5%-WATER 100 ML IVPB SCH (15:40)
[2023-05-31] MEDS: VANCOMYCIN/WATER FOR INJ (PEG) 1,000 MG/200 ML BAG IVPB SCH (20:01)
[2023-05-31] MEDS: MIRTAZAPINE 15 MG TABLET (FP) PO SCH (21:31)
[2023-06-01] MEDS: MEROPENEM 1 GM in DEXTROSE 5%-WATER 100 ML IVPB SCH ×2 (03:55→15:29)
[2023-06-01] MEDS ORDERED: CASPOFUNGIN ACETATE 70 MG in SODIUM CHLORIDE 250 ML IVPB ONE (08:56)
[2023-06-01 09:19] LABS: BASO % 0.5 % (0-2.0); EOS % 1.8 % (0-4.5); HEMATOCRIT 27.3 % (32.4-45.2); HEMOGLOBIN 8.6 GM/dL (10.7-15.3); LYMPH % 6.8 % (8-40); MCH 25.3 pg (25.7-33.7); MCHC 31.5 g/dl (32.0-36.0); MEAN CELL VOLUME 80.5 fl (80-96); MEAN PLT VOLUME 6.1 fl (7.5-11.1); MONO % 5.8 % (3.8-10.2); NEUT % 85.1 % (42.8-82.8); PLATELET COUNT 708 10^3/uL (134-434); RBC 3.39 M/mm3 (3.60-5.2); RDW 16.3 % (11.6-15.6); WHITE BLOOD COUNT 19.7 K/mm3 (4.0-10.0)
[2023-06-01 09:37] LABS: POTASSIUM 3.5 mmol/L (3.5-5.1)
[2023-06-01 09:39] LABS: CALCIUM 8.7 mg/dL (8.5-10.1)
[2023-06-01 09:40] LABS: ALBUMIN 1.8 g/dl (3.4-5.0); BLOOD UREA NITROGEN 15.6 mg/dL (7-18)
[2023-06-01 09:43] LABS: CREATININE 1.1 mg/dL (0.55-1.3)
[2023-06-01 09:44] LABS: BILIRUBIN,TOTAL 0.2 mg/dL (0.2-1); TOT PROT 7.1 g/dl (6.4-8.2)
[2023-06-01] MEDS ORDERED: ACETAMINOPHEN 1000 MG/100 ML BAG IVPB PRN ×2 (10:23→18:48)
[2023-06-01] MEDS: LACTOBACILLUS ACIDOPHILUS 1 TABLET PO SCH (10:46)
[2023-06-01] MEDS: AMINO ACIDS/PROTEIN HYDROLYS 30 ML LIQUID.PKT PO SCH ×2 (10:46→17:35)
[2023-06-01] MEDS: VITAMIN B COMP W-C 1 EA TABLET (NEPHRO-VITE) PO SCH (10:47)
[2023-06-01] MEDS: FOLIC ACID 1 MG TABLET (FP) PO SCH (10:47)
[2023-06-01] MEDS: PANTOPRAZOLE 40 MG TABLET PO SCH ×2 (10:47→21:09)
[2023-06-01] MEDS: NYSTATIN 100,000 UNIT/GM TOPICAL CREAM 15 GM TUBE TP SCH ×2 (10:49→21:10)
[2023-06-01] MEDS: ENOXAPARIN NA (PORCINE) 40 MG/0.4 ML DISP.SYRIN SQ SCH (10:50)
[2023-06-01 12:07] LABS: URINE APPEARANCE TURBID; URINE BILIRUBIN NEGATIVE (NEGATIVE); URINE COLOR YELLOW; URINE GLUCOSE (UA) NEGATIVE (NEGATIVE); URINE KETONE NEGATIVE (NEGATIVE)
[2023-06-01 12:08] LABS: URINE LEUK ESTERASE 4+ (NEGATIVE); URINE NITRITE NEGATIVE (NEGATIVE); URINE PROTEIN 2+ (NEGATIVE); URINE UROBILINOGEN 0.2 mg/dL (0.2-1.0)
[2023-06-01 12:10] LABS: EPI CELLS 88.6 /uL (0-25.1); HYALINE CASTS 340.32 /uL (0-3.1); URINE BACTERIA 1299.4 /uL (0-1359); URINE RBC 700.7 /uL (0-23.9); YEAST NEGATIVE (NEGATIVE)
[2023-06-01] MEDS: VANCOMYCIN/WATER FOR INJ (PEG) 1,000 MG/200 ML BAG IVPB SCH (16:03)
[2023-06-01] MEDS: LACTATED RINGERS SOLUTION 1,000 ML IV SCH (17:35)
[2023-06-01] MEDS ORDERED: PROMETHAZINE HCL 25 MG/1 ML VIAL IVPB PRN ×2 (17:54→18:48)
[2023-06-01] MEDS ORDERED: oxyCODONE HCL 5 MG TABLET PO PRN ×2 (17:54→18:48)
[2023-06-01] MEDS ORDERED: FENTANYL CITRATE/PF 50 MCG/ML VIAL ONE (18:07)
[2023-06-01] MEDS ORDERED: PROPOFOL 20 ML ONE (18:07)
[2023-06-01] MEDS ORDERED: MIDAZOLAM HCL 2 MG/2 ML SINGLE DOSE VIAL ONE (18:07)
[2023-06-01] MEDS ORDERED: LIDOCAINE HCL/PF 2% SDV 5ML VIAL ONE (18:09)
[2023-06-01] MEDS: SODIUM CHLORIDE 1,000 ML IV SCH (18:45)
[2023-06-01] MEDS ORDERED: BENZOCAINE/MENTHOL 1 EACH LOZENGE MM PRN (18:48)
[2023-06-01] MEDS ORDERED: LACTATED RINGERS SOLUTION 1,000 ML IV SCH (18:48)
[2023-06-01] MEDS ORDERED: ONDANSETRON 4 MG/2 ML VIAL IVPUSH PRN (18:48)
[2023-06-01] MEDS ORDERED: guaiFENesin 200 MG/10 ML 10 ML UNIT-DOSE CUPS PO PRN (18:48)
[2023-06-01] MEDS ORDERED: ACETAMINOPHEN 325 MG TABLET (FP) PO PRN (18:48)
[2023-06-01] MEDS: MIRTAZAPINE 15 MG TABLET (FP) PO SCH (21:08)
[2023-06-02 01:55] VITALS: RESP 18
[2023-06-02] MEDS: MEROPENEM 1 GM in DEXTROSE 5%-WATER 100 ML IVPB SCH ×2 (02:18→14:35)
[2023-06-02] MEDS: SODIUM CHLORIDE 1,000 ML IV SCH (07:46)
[2023-06-02 08:39] LABS: BASO % 0.4 % (0-2.0); EOS % 4.4 % (0-4.5); HEMATOCRIT 23.2 % (32.4-45.2); HEMOGLOBIN 7.5 GM/dL (10.7-15.3); LYMPH % 13.8 % (8-40); MCH 25.3 pg (25.7-33.7); MCHC 32.3 g/dl (32.0-36.0); MEAN CELL VOLUME 78.2 fl (80-96); MONO % 8.1 % (3.8-10.2); NEUT % 73.3 % (42.8-82.8); PLATELET COUNT 557 10^3/uL (134-434); RBC 2.97 M/mm3 (3.60-5.2); RDW 16.6 % (11.6-15.6); WHITE BLOOD COUNT 13.3 K/mm3 (4.0-10.0)
[2023-06-02] MEDS ORDERED: CASPOFUNGIN ACETATE 50 MG in SODIUM CHLORIDE 250 ML IVPB SCH (09:00)
[2023-06-02 09:10] LABS: POTASSIUM 3.2 mmol/L (3.5-5.1)
[2023-06-02 09:16] LABS: ALBUMIN 1.6 g/dl (3.4-5.0); BLOOD UREA NITROGEN 14.8 mg/dL (7-18)
[2023-06-02 09:19] LABS: CREATININE 0.9 mg/dL (0.55-1.3)
[2023-06-02 09:20] LABS: BILIRUBIN,TOTAL 0.4 mg/dL (0.2-1); TOT PROT 6.1 g/dl (6.4-8.2)
[2023-06-02] MEDS: AMINO ACIDS/PROTEIN HYDROLYS 30 ML LIQUID.PKT PO SCH ×2 (10:03→17:40)
[2023-06-02] MEDS: FOLIC ACID 1 MG TABLET (FP) PO SCH (10:03)
[2023-06-02] MEDS: VITAMIN B COMP W-C 1 EA TABLET (NEPHRO-VITE) PO SCH (10:04)
[2023-06-02] MEDS: ENOXAPARIN NA (PORCINE) 40 MG/0.4 ML DISP.SYRIN SQ SCH (10:04)
[2023-06-02] MEDS: LACTOBACILLUS ACIDOPHILUS 1 TABLET PO SCH (10:04)
[2023-06-02] MEDS: PANTOPRAZOLE 40 MG TABLET PO SCH ×2 (10:04→21:06)
[2023-06-02] MEDS: NYSTATIN 100,000 UNIT/GM TOPICAL CREAM 15 GM TUBE TP SCH ×2 (10:05→21:07)
[2023-06-02] MEDS: CASPOFUNGIN ACETATE 50 MG in SODIUM CHLORIDE 250 ML IVPB SCH (10:37)
[2023-06-02] MEDS ORDERED: IRON SUCROSE INJECTION 200 MG in SODIUM CHLORIDE 90 ML IVPB ONE (11:20)
[2023-06-02] MEDS ORDERED: VANCOMYCIN/WATER FOR INJ (PEG) 1,000 MG/200 ML BAG IVPB SCH (16:00)
[2023-06-02] MEDS: MIRTAZAPINE 15 MG TABLET (FP) PO SCH (21:06)
[2023-06-03] MEDS: MEROPENEM 1 GM in DEXTROSE 5%-WATER 100 ML IVPB SCH (02:23)
[2023-06-03] MEDS: LACTOBACILLUS ACIDOPHILUS 1 TABLET PO SCH (10:33)
[2023-06-03] MEDS: AMINO ACIDS/PROTEIN HYDROLYS 30 ML LIQUID.PKT PO SCH ×2 (10:33→18:12)
[2023-06-03] MEDS: CASPOFUNGIN ACETATE 50 MG in SODIUM CHLORIDE 250 ML IVPB SCH (10:33)
[2023-06-03] MEDS: FOLIC ACID 1 MG TABLET (FP) PO SCH (10:33)
[2023-06-03] MEDS: VITAMIN B COMP W-C 1 EA TABLET (NEPHRO-VITE) PO SCH (10:34)
[2023-06-03] MEDS: ENOXAPARIN NA (PORCINE) 40 MG/0.4 ML DISP.SYRIN SQ SCH (10:34)
[2023-06-03] MEDS: PANTOPRAZOLE 40 MG TABLET PO SCH ×2 (10:34→21:28)
[2023-06-03] MEDS: NYSTATIN 100,000 UNIT/GM TOPICAL CREAM 15 GM TUBE TP SCH ×2 (10:35→21:30)
[2023-06-03 13:07] LABS: HEMATOCRIT 24.6 % (32.4-45.2); MCH 25.8 pg (25.7-33.7); MCHC 32.5 g/dl (32.0-36.0); MEAN CELL VOLUME 79.4 fl (80-96); MEAN PLT VOLUME 6.3 fl (7.5-11.1); PLATELET COUNT 586 10^3/uL (134-434); RDW 16.4 % (11.6-15.6); WHITE BLOOD COUNT 12.1 K/mm3 (4.0-10.0)
[2023-06-03 13:31] LABS: POTASSIUM 3.5 mmol/L (3.5-5.1)
[2023-06-03 13:32] LABS: BLOOD UREA NITROGEN 14.2 mg/dL (7-18); CALCIUM 8.5 mg/dL (8.5-10.1)
[2023-06-03 13:33] LABS: ALBUMIN 1.6 g/dl (3.4-5.0)
[2023-06-03 13:36] LABS: CREATININE 0.8 mg/dL (0.55-1.3)
[2023-06-03 13:37] LABS: BILIRUBIN,TOTAL 0.3 mg/dL (0.2-1); TOT PROT 6.3 g/dl (6.4-8.2)
[2023-06-03] MEDS ORDERED: CEFTRIAXONE 2 GM-D5W BAG 2 GM/50 ML BAG IVPB SCH (13:45)
[2023-06-03 15:05] LABS: ANISOCYTOSIS 3+; MACROCYTOSIS 0
[2023-06-03] MEDS: PIPERACILLIN/TAZOB 3.375 GM 3.375 GM in DEXTROSE 5%-WATER - 50 ML IVPB SCH (18:05)
[2023-06-03] MEDS: MIRTAZAPINE 15 MG TABLET (FP) PO SCH (21:27)
[2023-06-03] MEDS: SODIUM CHLORIDE 1,000 ML IV SCH (21:35)
[2023-06-04] MEDS: PIPERACILLIN/TAZOB 3.375 GM 3.375 GM in DEXTROSE 5%-WATER - 50 ML IVPB SCH ×3 (04:08→17:34)
[2023-06-04] MEDS: AMINO ACIDS/PROTEIN HYDROLYS 30 ML LIQUID.PKT PO SCH ×2 (08:26→17:34)
[2023-06-04] MEDS ORDERED: PIPERACILLIN/TAZOBACTAM 3.375 GM VIAL IVPB ONE (09:43)
[2023-06-04] MEDS: ENOXAPARIN NA (PORCINE) 40 MG/0.4 ML DISP.SYRIN SQ SCH (10:27)
[2023-06-04] MEDS: VITAMIN B COMP W-C 1 EA TABLET (NEPHRO-VITE) PO SCH (10:27)
[2023-06-04] MEDS: LACTOBACILLUS ACIDOPHILUS 1 TABLET PO SCH (10:27)
[2023-06-04] MEDS: PANTOPRAZOLE 40 MG TABLET PO SCH ×2 (10:27→22:27)
[2023-06-04] MEDS: FOLIC ACID 1 MG TABLET (FP) PO SCH (10:27)
[2023-06-04] MEDS: NYSTATIN 100,000 UNIT/GM TOPICAL CREAM 15 GM TUBE TP SCH ×2 (10:28→22:26)
[2023-06-04] MEDS: SODIUM CHLORIDE 1,000 ML IV SCH ×2 (17:09→22:25)
[2023-06-04] MEDS: MIRTAZAPINE 15 MG TABLET (FP) PO SCH (22:27)
[2023-06-05] MEDS: PIPERACILLIN/TAZOB 3.375 GM 3.375 GM in DEXTROSE 5%-WATER - 50 ML IVPB SCH ×3 (02:22→17:55)
[2023-06-05] MEDS: AMINO ACIDS/PROTEIN HYDROLYS 30 ML LIQUID.PKT PO SCH ×2 (08:30→17:55)
[2023-06-05] MEDS: PANTOPRAZOLE 40 MG TABLET PO SCH ×2 (10:06→21:57)
[2023-06-05] MEDS: LACTOBACILLUS ACIDOPHILUS 1 TABLET PO SCH (10:07)
[2023-06-05] MEDS: FOLIC ACID 1 MG TABLET (FP) PO SCH (10:07)
[2023-06-05] MEDS: ENOXAPARIN NA (PORCINE) 40 MG/0.4 ML DISP.SYRIN SQ SCH (10:07)
[2023-06-05] MEDS: VITAMIN B COMP W-C 1 EA TABLET (NEPHRO-VITE) PO SCH (10:07)
[2023-06-05] MEDS: NYSTATIN 100,000 UNIT/GM TOPICAL CREAM 15 GM TUBE TP SCH ×2 (10:08→21:58)
[2023-06-05] MEDS: SODIUM CHLORIDE 1,000 ML IV SCH ×2 (18:55→21:59)
[2023-06-05] MEDS: MIRTAZAPINE 15 MG TABLET (FP) PO SCH (21:57)
[2023-06-06] MEDS: PIPERACILLIN/TAZOB 3.375 GM 3.375 GM in DEXTROSE 5%-WATER - 50 ML IVPB SCH ×4 (02:20→19:01)
[2023-06-06] MEDS: AMINO ACIDS/PROTEIN HYDROLYS 30 ML LIQUID.PKT PO SCH ×2 (08:41→18:01)
[2023-06-06 10:02] LABS: BASO % 1.1 % (0-2.0); HEMATOCRIT 24.6 % (32.4-45.2); HEMOGLOBIN 7.9 GM/dL (10.7-15.3); LYMPH % 17.6 % (8-40); MCH 25.9 pg (25.7-33.7); MEAN CELL VOLUME 80.9 fl (80-96); MEAN PLT VOLUME 6.1 fl (7.5-11.1); MONO % 8.8 % (3.8-10.2); NEUT % 68.5 % (42.8-82.8); PLATELET COUNT 567 10^3/uL (134-434); RBC 3.04 M/mm3 (3.60-5.2); WHITE BLOOD COUNT 11.8 K/mm3 (4.0-10.0)
[2023-06-06] MEDS: LACTOBACILLUS ACIDOPHILUS 1 TABLET PO SCH (10:02)
[2023-06-06] MEDS: ENOXAPARIN NA (PORCINE) 40 MG/0.4 ML DISP.SYRIN SQ SCH (10:02)
[2023-06-06] MEDS: PANTOPRAZOLE 40 MG TABLET PO SCH ×2 (10:02→23:02)
[2023-06-06] MEDS: FOLIC ACID 1 MG TABLET (FP) PO SCH (10:02)
[2023-06-06] MEDS: VITAMIN B COMP W-C 1 EA TABLET (NEPHRO-VITE) PO SCH (10:02)
[2023-06-06] MEDS: NYSTATIN 100,000 UNIT/GM TOPICAL CREAM 15 GM TUBE TP SCH ×2 (10:25→23:04)
[2023-06-06 10:36] LABS: POTASSIUM 3.2 mmol/L (3.5-5.1)
[2023-06-06 10:45] LABS: ALBUMIN 1.7 g/dl (3.4-5.0); BILIRUBIN,TOTAL 0.3 mg/dL (0.2-1); BLOOD UREA NITROGEN 14.2 mg/dL (7-18); TOT PROT 6.4 g/dl (6.4-8.2)
[2023-06-06 10:46] LABS: CALCIUM 8.4 mg/dL (8.5-10.1)
[2023-06-06 10:51] LABS: ANISOCYTOSIS 3+; MACROCYTOSIS 0
[2023-06-06] MEDS ORDERED: POTASSIUM CHLORIDE ORAL LIQUID 20 MEQ/15 ML PO ONE (15:10)
[2023-06-06] MEDS: SODIUM CHLORIDE 1,000 ML IV SCH (17:55)
[2023-06-06] MEDS: MIRTAZAPINE 15 MG TABLET (FP) PO SCH (23:02)
[2023-06-07] MEDS: PIPERACILLIN/TAZOB 3.375 GM 3.375 GM in DEXTROSE 5%-WATER - 50 ML IVPB SCH ×3 (02:25→18:04)
[2023-06-07] MEDS: PANTOPRAZOLE 40 MG TABLET PO SCH ×2 (09:21→22:32)
[2023-06-07] MEDS: ENOXAPARIN NA (PORCINE) 40 MG/0.4 ML DISP.SYRIN SQ SCH (09:21)
[2023-06-07] MEDS: AMINO ACIDS/PROTEIN HYDROLYS 30 ML LIQUID.PKT PO SCH ×2 (09:21→16:46)
[2023-06-07] MEDS: VITAMIN B COMP W-C 1 EA TABLET (NEPHRO-VITE) PO SCH (09:22)
[2023-06-07] MEDS: LACTOBACILLUS ACIDOPHILUS 1 TABLET PO SCH (09:22)
[2023-06-07] MEDS: SODIUM CHLORIDE 1,000 ML IV SCH ×2 (09:22→22:32)
[2023-06-07] MEDS: FOLIC ACID 1 MG TABLET (FP) PO SCH (09:22)
[2023-06-07] MEDS: NYSTATIN 100,000 UNIT/GM TOPICAL CREAM 15 GM TUBE TP SCH ×2 (12:30→22:32)
[2023-06-07 12:34] LABS: HEMATOCRIT 26.6 % (32.4-45.2); HEMOGLOBIN 8.4 GM/dL (10.7-15.3); MCH 25.8 pg (25.7-33.7); MCHC 31.7 g/dl (32.0-36.0); MEAN CELL VOLUME 81.3 fl (80-96); MEAN PLT VOLUME 6.2 fl (7.5-11.1); PLATELET COUNT 627 10^3/uL (134-434); RBC 3.27 M/mm3 (3.60-5.2); RDW 17.5 % (11.6-15.6); WHITE BLOOD COUNT 13.4 K/mm3 (4.0-10.0)
[2023-06-07 12:52] LABS: ANISOCYTOSIS 1+; MACROCYTOSIS 0
[2023-06-07 12:58] LABS: POTASSIUM 3.4 mmol/L (3.5-5.1)
[2023-06-07 13:00] LABS: CALCIUM 8.5 mg/dL (8.5-10.1)
[2023-06-07 13:02] LABS: ALBUMIN 1.8 g/dl (3.4-5.0); BLOOD UREA NITROGEN 14.8 mg/dL (7-18)
[2023-06-07 13:05] LABS: CREATININE 0.8 mg/dL (0.55-1.3)
[2023-06-07 13:06] LABS: BILIRUBIN,TOTAL 0.3 mg/dL (0.2-1)
[2023-06-07 13:12] LABS: URIC ACID 2.5 mg/dL (2.6-7.2)
[2023-06-07] MEDS ORDERED: POTASSIUM CHLORIDE ORAL LIQUID 20 MEQ/15 ML PO ONE (14:00)
[2023-06-07] MEDS: MIRTAZAPINE 15 MG TABLET (FP) PO SCH (22:32)
[2023-06-07] MEDS ORDERED: IBUPROFEN 400 MG TABLET (FP) PO PRN (23:42)
[2023-06-08] MEDS: PIPERACILLIN/TAZOB 3.375 GM 3.375 GM in DEXTROSE 5%-WATER - 50 ML IVPB SCH ×3 (02:56→18:23)
[2023-06-08] MEDS ORDERED: FUROSEMIDE 40 MG/4 ML INJECTABLE VIAL IVPUSH ONE (09:15)
[2023-06-08] MEDS: FOLIC ACID 1 MG TABLET (FP) PO SCH (10:01)
[2023-06-08] MEDS: PANTOPRAZOLE 40 MG TABLET PO SCH ×2 (10:01→21:40)
[2023-06-08] MEDS: VITAMIN B COMP W-C 1 EA TABLET (NEPHRO-VITE) PO SCH (10:01)
[2023-06-08] MEDS: ENOXAPARIN NA (PORCINE) 40 MG/0.4 ML DISP.SYRIN SQ SCH (10:01)
[2023-06-08] MEDS: AMINO ACIDS/PROTEIN HYDROLYS 30 ML LIQUID.PKT PO SCH ×2 (10:01→18:24)
[2023-06-08] MEDS: LACTOBACILLUS ACIDOPHILUS 1 TABLET PO SCH (10:01)
[2023-06-08] MEDS: NYSTATIN 100,000 UNIT/GM TOPICAL CREAM 15 GM TUBE TP SCH ×2 (10:03→21:46)
[2023-06-08 11:05] LABS: HEMATOCRIT 24.8 % (32.4-45.2); HEMOGLOBIN 8.2 GM/dL (10.7-15.3); MCH 26.6 pg (25.7-33.7); MCHC 33.1 g/dl (32.0-36.0); MEAN CELL VOLUME 80.4 fl (80-96); MEAN PLT VOLUME 6.3 fl (7.5-11.1); PLATELET COUNT 579 10^3/uL (134-434); RBC 3.09 M/mm3 (3.60-5.2); RDW 17.9 % (11.6-15.6); WHITE BLOOD COUNT 9.2 K/mm3 (4.0-10.0)
[2023-06-08 11:35] LABS: POTASSIUM 4.2 mmol/L (3.5-5.1)
[2023-06-08 11:41] LABS: ALBUMIN 1.9 g/dl (3.4-5.0)
[2023-06-08 11:42] LABS: CALCIUM 8.7 mg/dL (8.5-10.1)
[2023-06-08 11:44] LABS: BILIRUBIN,TOTAL 0.7 mg/dL (0.2-1); CREATININE 0.9 mg/dL (0.55-1.3); TOT PROT 6.8 g/dl (6.4-8.2)
[2023-06-08 11:50] LABS: BLOOD UREA NITROGEN 12.8 mg/dL (7-18)
[2023-06-08 12:19] LABS: ANISOCYTOSIS 1+; MACROCYTOSIS 1+
[2023-06-08] MEDS: MIRTAZAPINE 15 MG TABLET (FP) PO SCH (21:42)
[2023-06-09] MEDS: PIPERACILLIN/TAZOB 3.375 GM 3.375 GM in DEXTROSE 5%-WATER - 50 ML IVPB SCH ×3 (03:00→09:05)
[2023-06-09 08:57] VITALS: BP 117/61; PULSE 96; TEMP 97.8
[2023-06-09] MEDS: LACTOBACILLUS ACIDOPHILUS 1 TABLET PO SCH (09:06)
[2023-06-09] MEDS: FOLIC ACID 1 MG TABLET (FP) PO SCH (09:06)
[2023-06-09] MEDS: PANTOPRAZOLE 40 MG TABLET PO SCH (09:06)
[2023-06-09] MEDS: VITAMIN B COMP W-C 1 EA TABLET (NEPHRO-VITE) PO SCH (09:07)
[2023-06-09] MEDS: NYSTATIN 100,000 UNIT/GM TOPICAL CREAM 15 GM TUBE TP SCH (09:08)
[2023-06-09] MEDS: AMINO ACIDS/PROTEIN HYDROLYS 30 ML LIQUID.PKT PO SCH (09:17)
[2023-06-09] MEDS: ENOXAPARIN NA (PORCINE) 40 MG/0.4 ML DISP.SYRIN SQ SCH (10:47)
== END 2023-06-09 14:41 | disposition home or self-care (01) | DRG 660 ==
LOC: JER 14:02 → JERBED 19:08 → J5S 05-11 02:25
PROVIDERS: ADMIT Internal Medicine; ATTEND Internal Medicine
PROC: BT14ZZZ Fluoroscopy of Kidneys, Ureters and Bladder (ICD-10-PCS; 2023-05-11)
PROC: 0T788DZ Dilation of Bilateral Ureters with Intraluminal Device, Via Natural or Artificial Opening Endoscopic (ICD-10-PCS; principal; 2023-05-11 15:00)
PROC: 0T768DZ Dilation of Right Ureter with Intraluminal Device, Via Natural or Artificial Opening Endoscopic (ICD-10-PCS; 2023-05-24)
PROC: 0TP98DZ Removal of Intraluminal Device from Ureter, Via Natural or Artificial Opening Endoscopic (ICD-10-PCS; 2023-05-24)
PROC: 0T9030Z Drainage of Right Kidney with Drainage Device, Percutaneous Approach (ICD-10-PCS; 2023-05-27)
PROC: 0T788DZ Dilation of Bilateral Ureters with Intraluminal Device, Via Natural or Artificial Opening Endoscopic (ICD-10-PCS; 2023-06-01)
PROC: 0TP98DZ Removal of Intraluminal Device from Ureter, Via Natural or Artificial Opening Endoscopic (ICD-10-PCS; 2023-06-01)
DX: N13.6 Pyonephrosis (principal); E87.1 Hypo-osmolality and hyponatremia; T83.123A Displacement of other urinary stents, initial encounter; I10 Essential (primary) hypertension; R63.4 Abnormal weight loss; N12 Tubulo-interstitial nephritis, not specified as acute or chronic; Y83.9 Surgical procedure, unspecified as the cause of abnormal reaction of the patient, or of later complication, without mention of misadventure at the time of the procedure; Z68.24 Body mass index [BMI] 24.0-24.9, adult
CPT/HCPCS: 0241U-QW; 36415; 50432; 71045-TC-FY; 71046-TC-FY; 71250-TC; 71260-TC; 73562-TC-RT-FY; 73610-TC-RT-FY; 74176-TC; 74177-TC; 74178-TC; 76000-TC-FY; 80048; 80053; 81003; 82272; 82728; 82784; 83540; 83550; 83605; 83615; 83735; 83883; 84100; 84155; 84165; 84484; 84550; 85025; 85027; 85045; 85610; 85651; 85730; 86140; 86850; 86900; 86901; 87040; 87070; 87075; 87086; 87102; 87116; 87186; 87205; 87206; 87210; 87324; 87449; 88300-TC; 93005; 93010; 93306-TC; 93971-TC; 94760; 97116-GP; 97161-GP; 99291; C1758; C2617; G0480; J0637; J1644; J1756; Q9967

== ENCOUNTER 2023-10-05 04:16 | Day surgery (SDC) | payer OTHER, MEDICARE ==
[2023-09-29 11:35] VITALS: BMI 20.8
[2023-10-05] MEDS ORDERED: oxyCODONE HCL 5 MG TABLET PO PRN (13:28)
[2023-10-05] MEDS ORDERED: ONDANSETRON 4 MG/2 ML VIAL IVPUSH PRN (13:28)
[2023-10-05] MEDS ORDERED: LACTATED RINGERS SOLUTION 1,000 ML IV SCH (13:30)
[2023-10-05] MEDS: ceFAZolin SODIUM 1 GM VIAL IVPB ONE (14:55)
[2023-10-05 16:26] VITALS: RESP 20; TEMP 97.7
[2023-10-05 17:46] VITALS: BP 150/74; PULSE 79
== END 2023-10-05 16:50 | disposition home or self-care (01) ==
LOC: JASU-SURG 04:16
PROVIDERS: ATTEND Urology
PROC: 0TC18ZZ Extirpation of Matter from Left Kidney, Via Natural or Artificial Opening Endoscopic (ICD-10-PCS; principal; 2023-10-05 15:00)
PROC: 0T778DZ Dilation of Left Ureter with Intraluminal Device, Via Natural or Artificial Opening Endoscopic (ICD-10-PCS; 2023-10-05 15:00)
DX: N20.1 Calculus of ureter (principal); N20.0 Calculus of kidney
CPT/HCPCS: 76000-TC-FY; 94760; C1747; C1758; C2617